=== PATIENT | male | born 1970 | race Caucasian/White ===

== ENCOUNTER 2024-06-03 10:32 | Emergency (ER) | payer OTHER ==
[2024-06-03] MEDS: Ibuprofen 600 MG Tab PO ONE (12:12)
== END 2024-06-03 12:53 | disposition home or self-care (01) ==
LOC: MW.ED 10:32
DX: M25.511 Pain in right shoulder (principal); I10 Essential (primary) hypertension; F17.210 Nicotine dependence, cigarettes, uncomplicated; Z79.899 Other long term (current) drug therapy; Z88.0 Allergy status to penicillin; Z91.030 Bee allergy status; Z75.8 Other problems related to medical facilities and other health care
CPT/HCPCS: 73030; 99283; A9270

== ENCOUNTER 2025-02-20 13:38 | Emergency (ER) | payer BC | END 2025-02-20 15:54 | disposition home or self-care (01) | LOC: MW.ED 13:38 | DX: S49.91XA Unspecified injury of right shoulder and upper arm, initial encounter (principal); I10 Essential (primary) hypertension; Z47.89 Encounter for other orthopedic aftercare; Z88.0 Allergy status to penicillin; Z91.030 Bee allergy status; Z79.899 Other long term (current) drug therapy; X58.XXXA Exposure to other specified factors, initial encounter | CPT/HCPCS: 73060-26-RT; 73060-RT; 99282; 99283 ==

== ENCOUNTER 2025-07-01 10:17 | Emergency (ER) | payer BC, OTHER ==
[2025-07-01] MEDS ORDERED: Ketorolac 30 MG/ML SDV IM ONE (12:44)
== END 2025-07-01 13:29 | disposition home or self-care (01) ==
LOC: MW.ED 10:17
DX: S22.31XA Fracture of one rib, right side, initial encounter for closed fracture (principal); S09.90XA Unspecified injury of head, initial encounter; I10 Essential (primary) hypertension; Z91.030 Bee allergy status; Z88.0 Allergy status to penicillin; Z79.899 Other long term (current) drug therapy; W10.8XXA Fall (on) (from) other stairs and steps, initial encounter; Y93.89 Activity, other specified
CPT/HCPCS: 70450; 71250; 93005; 99284; A9270; J8540; 93010